=== PATIENT | male | born 1975 | race Caucasian/White ===

== ENCOUNTER 2017-01-24 07:03 | Emergency (ER) | payer OTHER ==
--- NOTE | 2017-01-24 07:13 | UCPHY ---
H & P Time Seen by Provider: 01/24/17 07:11 Patient Type: New HPI/ROS: CHIEF COMPLAINT: Right wrist pain HISTORY OF PRESENT ILLNESS: 41-year-old male reports he was digging fence post holes on Tuesday. His right wrist began to bother him Tuesday evening and has been painful since. 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 No fever. No redness. No warmth. No history of arthritis or gout. No direct trauma. Patient reports using a wrap last night greatly helped the swelling and discomfort. REVIEW OF SYSTEMS: Aside from elements discussed in the HPI, a comprehensive 10-point review of systems was reviewed and is negative. PAST MEDICAL HISTORY: Noncontributory. SOCIAL HISTORY: Nonsmoker. GENERAL APPEARANCE: Pleasant, overweight, no distress. FOCUSED EXAM OF right wrist: Mild diffuse swelling across the dorsum of the wrist. No bony tenderness palpable at the radius, ulna. No erythema. No warmth. Normal sensation distally. Normal radial, median, and ulnar motor function, although it causes pain. Constitutional: Initial Vital Signs Temperature (C) 36.8 C 01/24/17 07:18 Heart Rate 75 01/24/17 07:18 Respiratory Rate 20 01/24/17 07:18 Blood Pressure 184/121 H 01/24/17 07:18 O2 Sat (%) 94 01/24/17 07:18 O2 Delivery Mode Room Air Allergies/Adverse Reactions: Sulfa (Sulfonamide Antibiotics) Allergy (Verified 12/06/12 11:16) Home Medications: Medication Instructions Recorded predniSONE [prednisone 10mg (RX)] 40 mg PO DAILY 3 Days 01/24/17 MDM/Departure - [facility] Diagnostics: Xray: Right wrist x-ray was obtained. I viewed the images myself on the PACS system. My interpretation of the images is: No fractures. The radiology interpretation is: Pending. I discussed the results with the patient. ED Course/Re-evaluation: Suspect sprain. Not patient has an arthritic, septic, or gouty process. No erythema or warmth. No prior history. No fevers and nausea. Differential Diagnosis: Differential diagnosis for the patient's injury was considered including but not limited to contusion, abrasion, sprain, strain, arthritis, septic arthritis , gouty arthritis, dislocation. - Depart Disposition: Home, Routine, Self-Care Clinical Impression: Right wrist pain Muscle strain of right wrist Qualifiers: Encounter type: initial encounter Qualified Code(s): S66.911A - Strain of unspecified muscle, fascia and tendon at wrist and hand level, right hand, initial encounter Condition: Good Instructions: Wrist Sprain (ED) Additional Instructions: Mainstay of therapy is rest, ice, immobilization, elevation, and nonsteroidal anti-inflammatories for pain and to decrease swelling. Apply ice for 20-30 minutes every 2-3 hours for the next 48 hours. I recommend Ibuprofen (Motrin, Advil) or Naproxen Sodium (Aleve) for pain and anti-inflammatory effects. You may take either one, but do not take both. Your dose is: Ibuprofen 600 mg every 6-8 hours with food. OR Naproxen Sodium (Aleve) 220 mg every 12 hours. You been given a prescription for prednisone. You may take this as needed for severe swelling and discomfort not improved by the above measures. Followup with the hand surgeon as directed if your symptoms are not improving over the next several days. Be sure you are seen sooner if you develop redness on the wrist, warmth, increased swelling, fevers, or other concerns. Prescriptions: predniSONE [prednisone 10mg (RX)] 40 mg PO DAILY 3 Days Referrals: Alex MCKEON [Other] - As per Instructions Steven Dickinson MD [Medical Doctor] - As per Instructions - PQRS PQRS Measurement: Not applicable
[2017-01-24 07:22] VITALS: BP 184/121; PULSE 75; RESP 20; TEMP 98.2; O2SAT 94
[2017-01-24] MEDS ORDERED: KETOROLAC 30 MG/1 ML SDV IM ONE (07:25)
== END 2017-01-24 08:04 | disposition home or self-care (01) ==
LOC: CED 07:03
DX: S66.911A Strain of unspecified muscle, fascia and tendon at wrist and hand level, right hand, initial encounter (principal); Y92.017 Garden or yard in single-family (private) house as the place of occurrence of the external cause; Y93.H2 Activity, gardening and landscaping; Y99.8 Other external cause status; X50.0XXA Overexertion from strenuous movement or load, initial encounter
CPT/HCPCS: 73110-PO; 99202-PO; G0463-PO; J1885; L3908